=== PATIENT | male | born 1985 | race Caucasian/White ===

== ENCOUNTER 2018-12-24 08:57 | Inpatient (IN) | payer OTHER ==
[2018-12-24 09:23] VITALS: BMI 22.8
--- NOTE | 2018-12-24 09:36 | HP ---
CIWA Score - Admission Criteria [facility]ASAS Guidelines: Admission for Medically Managed Detox: Requires at least one of the followin. CIWA greater than 12 2. Seizures within the past 24 hours 3. Delirium tremens within the past 24 hours 4. Hallucinations within the past 24 hours 5. Acute intervention needed for co occurring medical disorder 6. Acute intervention needed for co occurring psychiatric disorder 7. Severe withdrawal that cannot be handled at a lower level of care (continued vomiting, continued diarrhea, abnormal vital signs) requiring intravenous medication and/or fluids 8. Admission ROS BHS - HPI Chief Complaint: i am here for rehab from cocaine and heroin Allergies/Adverse Reactions: Allergies Allergy/AdvReac Type Severity Reaction Status Date / Time No Known Allergies Allergy Verified 12/24/18 10:24 History of Present Illness: this 33 years old male with heroin and cocaine dependence,seeking rehab, completed detox at [facility] for 12/02/18 to 11/29/18 nicotine dependence 1o cigarette/day longest sobriety 1 year plan for outpatient program after rehab Exam Limitations: No Limitations - Ebola screening Have you traveled outside of the country in the last 21 days: No Have you had contact with anyone from an Ebola affected area: No Have you been sick,other than usual withdrawal symptoms: No Do you have a fever: No - Review of Systems Constitutional: No Symptoms Reported EENT: reports: No Symptoms Reported Respiratory: reports: No Symptoms reported Cardiac: reports: No Symptoms Reported GI: reports: No Symptoms Reported : reports: Flank Pain Musculoskeletal: reports: No Symptoms Reported Integumentary: reports: No Symptoms Reported Neuro: reports: Headache Endocrine: reports: No Symptoms Reported Hematology: reports: No Symptoms Reported Psychiatric: reports: No Sypmtoms Reported Other Systems: Reviewed and Negative Patient History - Patient Medical History Hx Anemia: No Hx Asthma: No Hx Chronic Obstructive Pulmonary Disease (COPD): No Hx Cancer: No Hx Cardiac Disorders: No Hx Congestive Heart Failure: No Hx Hypertension: No Hx Hypercholesterolemia: No Hx Pacemaker: No HX Cerebrovascular Accident: No Hx Seizures: No Hx Dementia: No Hx Diabetes: No Hx Gastrointestinal Disorders: No Hx Liver Disease: No Hx Genitourinary Disorders: No Hx Sexually Transmitted Disorders: No Hx Renal Disease (ESRD): No Hx Thyroid Disease: No Hx Human Immunodeficiency Virus (HIV): No (last 12/04 negative) Hx Hepatitis C: No Hx Depression: No Hx Suicide Attempt: No Hx Bipolar Disorder: No Hx Schizophrenia: No Other Medical History: no suicidal,no hommicidal - Patient Surgical History Past Surgical History: Yes Other Surgical History: tosillectomy at age of 16 - PPD History Previous Implant?: Yes Documented Results: Negative w/o proof Implanted On Prior R Admission?: No PPD to be Administered?: Yes - Smoking Cessation Smoking history: Current every day smoker Have you smoked in the past 12 months: Yes Aproximately how many cigarettes per day: 10 Cigars Per Day: 0 Hx Chewing Tobacco Use: No Initiated information on smoking cessation: Yes 'Breaking Loose' booklet given: 12/24/18 - Substance & Tx. History Hx Alcohol Use: No Hx Substance Use: Yes Substance Use Type: Alcohol, Cocaine, Heroin Hx Substance Use Treatment: Yes ([facility] 12/02/18 to 12/09/18) - Substances Abused Heroin Route: Injection Frequency: 1-2 times per week Amount used: 2 bags Age of first use: 28 Date of Last Use: 12/21/18 Cocaine Route: Injection Frequency: Daily Amount used: 80$ Age of first use: 23 Date of Last Use: 12/22/18 Family Disease History - Family Disease History Family History: Denies Admission Physical Exam BHS - Vital Signs Vital Signs: Vital Signs - 24 hr 12/24/18 09:21 Temperature 98.5 F Pulse Rate 72 Respiratory 18 Rate Blood Pressure 134/84 - Physical General Appearance: Yes: Within Normal Limits HEENTM: Yes: Normal ENT Inspection, NIKA, Pharynx Normal Respiratory: Yes: Lungs Clear, Normal Breath Sounds, No Respiratory Distress Neck: Yes: Within Normal Limits, Supple, Trachea in good position Breast: Yes: Within Normal Limits Cardiology: Yes: Within Normal Limits, Regular Rhythm, Regular Rate, S1, S2 Abdominal: Yes: Within Normal Limits, Normal Bowel Sounds, Non Tender, Flat, Soft Genitourinary: Yes: Within Normal Limits Back: Yes: Within Normal Limits Musculoskeletal: Yes: Back pain, Muscle Pain Extremities: Yes: Normal Range of Motion, Tremors 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, Fully Oriented, Alert, Motor Strength 5/5 Integumentary: Yes: Within Normal Limits Lymphatic: Yes: Within Normal Limits - Diagnostic (1) Heroin abuse Current Visit: Yes Status: Acute (2) Cocaine dependence Current Visit: Yes Status: Acute (3) Nicotine dependence Current Visit: Yes Status: Acute Cleared for Admission [facility] - Detox or Rehab Claeared for Rehab Admission: Yes [facility] Breath Alcohol Content Breath Alcohol Content: 0 Urine Drug Screen - Results Drug Screen Negative: No Urine Drug Screen Results: SHARDA-Cocaine, OPI-Opiates Inpatient Rehab Admission - Rehab Decision to Admit Inpatient rehab admission?: Yes - Initial Determination Are CD services needed?: Yes Free of communicable disease: Yes Not in need of hospitalization: Yes - Rehab Admission Criteria Previous failed treatment: Yes Poor recovery environment: Yes Comorbidities: Yes Lacks judgement: No Patient is meeting Inpatient Rehab admission criteria:: Yes
[2018-12-24] MEDS ORDERED: MAGNESIUM CITRATE 300 ML BOTTLE PO PRN (10:19)
[2018-12-24] MEDS ORDERED: MAG HYDROX/AL HYDROX/SIMETH 30 ML UNIT-DOSE CUP PO PRN (10:19)
[2018-12-24] MEDS ORDERED: LOPERAMIDE HCL 2 MG CAPSULE PO PRN (10:19)
[2018-12-24] MEDS ORDERED: MAGNESIUM HYDROX 2400MG/30ML ORAL SUSPENSION 30 ML CUP PO PRN (10:19)
[2018-12-24] MEDS ORDERED: ACETAMINOPHEN 325 MG TABLET (FP) PO PRN (10:19)
[2018-12-24] MEDS ORDERED: guaiFENesin 200 MG/10 ML 10 ML UNIT-DOSE CUPS PO PRN (10:19)
[2018-12-24] MEDS ORDERED: MENTHOL/PHENOL 1 EACH UD MM PRN (10:19)
[2018-12-24] MEDS ORDERED: P-EPHED 60MG/TRIPROLIDI 2.5MG TABLET PO PRN (10:19)
[2018-12-24] MEDS ORDERED: TUBERCULIN PPD 5 TU/0.1ML VIAL ID ONE ×2 (14:10→14:37)
[2018-12-24] MEDS: IBUPROFEN 400 MG TABLET (FP) PO PRN (14:11)
[2018-12-24 16:20] LABS: ALBUMIN 4.3 g/dl (3.4-5.0); ALK PHOS 108 U/L (45-117); ANION GAP 6 MMOL/L (8-16); BILIRUBIN,TOTAL 0.6 mg/dL (0.2-1); BLOOD UREA NITROGEN 10 mg/dL (7-18); CALCIUM 9.3 mg/dL (8.5-10.1); CHLORIDE 106 mmol/L (98-107); CO2 27 mmol/L (21-32); CREATININE 1.1 mg/dL (0.55-1.3); GLUCOSE,RANDOM 97 mg/dL (74-106); POTASSIUM 4.3 mmol/L (3.5-5.1); SGOT/AST 9 U/L (15-37); SGPT/ALT 22 U/L (13-61); SODIUM 140 mmol/L (136-145); TOT PROT 7.9 g/dl (6.4-8.2)
[2018-12-24 19:35] LABS: HEMATOCRIT 42.4 % (35.4-49); HEMOGLOBIN 14.2 GM/dL (11.7-16.9); MCH 30.6 pg (25.7-33.7); MCHC 33.5 g/dl (32.0-35.9); MEAN CELL VOLUME 91.3 fl (80-96); PLATELET COUNT 234 K/MM3 (134-434); RBC 4.64 M/mm3 (4.00-5.60); RDW 14.2 % (11.9-15.9); WHITE BLOOD COUNT 6.4 K/mm3 (4.0-10.0)
[2018-12-24] MEDS: THIAMINE HCL 100 MG TABLET (FP) PO SCH (21:26)
[2018-12-25] MEDS: PRENATAL VITAMINS W/ FOLIC ACID TABLET (FP) PO SCH (10:55)
--- NOTE | 2018-12-25 13:37 | EKG ---
Test Reason : Blood Pressure : / mmHG Vent. Rate : 064 BPM Atrial Rate : 064 BPM P-R Int : 140 ms QRS Dur : 084 ms QT Int : 422 ms P-R-T Axes : 061 072 058 degrees QTc Int : 435 ms NORMAL SINUS RHYTHM NORMAL ECG NO PREVIOUS ECGS AVAILABLE Confirmed by MD YIN, LAURA ([id number]) on 12/25/2018 1:37:35 PM Referred By: Confirmed By:LAURA ESQUEDA MD
[2018-12-25 17:33] LABS: URINE APPEARANCE CLOUDY; URINE BILIRUBIN NEGATIVE (<2.0 mg/dL); URINE COLOR AMBER; URINE GLUCOSE (UA) NEGATIVE (NEGATIVE); URINE KETONE NEGATIVE (NEGATIVE); URINE LEUK ESTERASE NEGATIVE (NEGATIVE); URINE NITRITE NEGATIVE (NEGATIVE); URINE PROTEIN NEGATIVE (NEGATIVE); URINE UROBILINOGEN NEGATIVE mg/dL (0.2-1.0)
[2018-12-25] MEDS: THIAMINE HCL 100 MG TABLET (FP) PO SCH (21:42)
[2018-12-25] MEDS: MELATONIN 5 MG TABLETS PO PRN (21:43)
[2018-12-26] MEDS: IBUPROFEN 400 MG TABLET (FP) PO PRN (09:39)
[2018-12-26] MEDS: hydrOXYzine PAMOATE 50 MG CAPSULE (FP) PO PRN (09:40)
[2018-12-26] MEDS: PRENATAL VITAMINS W/ FOLIC ACID TABLET (FP) PO SCH (09:42)
--- NOTE | 2018-12-26 11:34 | PN ---
[facility] Progress Note Note: PT C/O WITHDRAWAL SX OF SWEATS,CHILLS,FATIGUE, IRRITABILITY,RESTLESSNESS, BODY/ BACK ACHES. PT REPORTS COMPLETED DETOX AT [facility], [facility] 2 WEEKS AGO BEFORE COMING INTO REHAB 2 DAYS AGO. PT WAS SEEN IN BED, SLEEPY BUT EASILY AROUSED. ALERT O X 3. Vital Signs 12/26/18 06:44 Temperature 98.7 F Pulse Rate 53 L Respiratory 16 Rate Blood Pressure 136/75 Laboratory Tests 12/24/18 12/24/18 12/24/18 10:15 10:15 10:15 WBC 6.4 RBC 4.64 Hgb 14.2 Hct 42.4 MCV 91.3 MCH 30.6 MCHC 33.5 RDW 14.2 Plt Count 234 MPV 10.0 Sodium 140 Potassium 4.3 Chloride 106 Carbon Dioxide 27 Anion Gap 6 L BUN 10 Creatinine 1.1 Creat Clearance w eGFR > 60 Random Glucose 97 Calcium 9.3 Total Bilirubin 0.6 AST 9 L ALT 22 Alkaline Phosphatase 108 Total Protein 7.9 Albumin 4.3 Urine Color Urine Appearance Urine pH Ur Specific [place] Urine Protein Urine Glucose (UA) Urine Ketones Urine Blood Urine Nitrite Urine Bilirubin Urine Urobilinogen Ur Leukocyte Esterase RPR Titer Nonreactive 12/25/18 15:45 WBC RBC Hgb Hct MCV MCH MCHC RDW Plt Count MPV Sodium Potassium Chloride Carbon Dioxide Anion Gap BUN Creatinine Creat Clearance w eGFR Random Glucose Calcium Total Bilirubin AST ALT Alkaline Phosphatase Total Protein Albumin Urine Color [place] Urine Appearance Cloudy Urine pH 7.0 Ur Specific [place] 1.021 Urine Protein Negative Urine Glucose (UA) Negative Urine Ketones Negative Urine Blood Negative Urine Nitrite Negative Urine Bilirubin Negative Urine Urobilinogen Negative Ur Leukocyte Esterase Negative RPR Titer RESIDUAL W/S PLAN:CLONIDINE 0.1 MG PO BID DIRECTED FLEXERIL 10 MG PO BID MOTRIN PRN INCREASE PO FLUIDS.
[2018-12-26] MEDS: cloNIDine HCL 0.1 MG TABLET PO SCH (21:24)
[2018-12-26] MEDS: CYCLOBENZAPRINE HCL 10 MG TABLET (FP) PO SCH (21:24)
[2018-12-26] MEDS: THIAMINE HCL 100 MG TABLET (FP) PO SCH (21:24)
[2018-12-26] MEDS: MELATONIN 5 MG TABLETS PO PRN (21:25)
[2018-12-27] MEDS: cloNIDine HCL 0.1 MG TABLET PO SCH ×2 (10:01→21:26)
[2018-12-27] MEDS: PRENATAL VITAMINS W/ FOLIC ACID TABLET (FP) PO SCH (10:01)
[2018-12-27] MEDS: CYCLOBENZAPRINE HCL 10 MG TABLET (FP) PO SCH ×2 (10:01→21:26)
[2018-12-27] MEDS: hydrOXYzine PAMOATE 50 MG CAPSULE (FP) PO PRN (10:02)
[2018-12-27] MEDS: THIAMINE HCL 100 MG TABLET (FP) PO SCH (21:26)
[2018-12-27] MEDS: MELATONIN 5 MG TABLETS PO PRN (21:26)
[2018-12-28] MEDS: cloNIDine HCL 0.1 MG TABLET PO SCH ×2 (11:34→21:35)
[2018-12-28] MEDS: PRENATAL VITAMINS W/ FOLIC ACID TABLET (FP) PO SCH (11:35)
[2018-12-28] MEDS: CYCLOBENZAPRINE HCL 10 MG TABLET (FP) PO SCH ×2 (11:35→21:35)
[2018-12-28] MEDS: THIAMINE HCL 100 MG TABLET (FP) PO SCH (21:35)
[2018-12-28] MEDS: MELATONIN 5 MG TABLETS PO PRN (21:36)
[2018-12-28] MEDS: hydrOXYzine PAMOATE 50 MG CAPSULE (FP) PO PRN (21:36)
[2018-12-29] MEDS: CYCLOBENZAPRINE HCL 10 MG TABLET (FP) PO SCH ×2 (10:03→21:29)
[2018-12-29] MEDS: PRENATAL VITAMINS W/ FOLIC ACID TABLET (FP) PO SCH (10:03)
[2018-12-29] MEDS: cloNIDine HCL 0.1 MG TABLET PO SCH ×2 (10:03→21:29)
[2018-12-29] MEDS: THIAMINE HCL 100 MG TABLET (FP) PO SCH (21:29)
[2018-12-29] MEDS: MELATONIN 5 MG TABLETS PO PRN (21:29)
[2018-12-30] MEDS: PRENATAL VITAMINS W/ FOLIC ACID TABLET (FP) PO SCH (11:01)
[2018-12-30] MEDS: cloNIDine HCL 0.1 MG TABLET PO SCH ×2 (11:01→21:20)
[2018-12-30] MEDS: CYCLOBENZAPRINE HCL 10 MG TABLET (FP) PO SCH ×2 (11:01→21:20)
[2018-12-30] MEDS: hydrOXYzine PAMOATE 50 MG CAPSULE (FP) PO PRN (11:01)
[2018-12-30] MEDS: THIAMINE HCL 100 MG TABLET (FP) PO SCH (21:20)
[2018-12-30] MEDS: MELATONIN 5 MG TABLETS PO PRN (21:20)
[2018-12-31] MEDS: cloNIDine HCL 0.1 MG TABLET PO SCH ×2 (10:17→21:17)
[2018-12-31] MEDS: CYCLOBENZAPRINE HCL 10 MG TABLET (FP) PO SCH ×2 (10:17→21:18)
[2018-12-31] MEDS: PRENATAL VITAMINS W/ FOLIC ACID TABLET (FP) PO SCH (10:17)
[2018-12-31] MEDS: MELATONIN 5 MG TABLETS PO PRN (21:18)
[2018-12-31] MEDS: THIAMINE HCL 100 MG TABLET (FP) PO SCH (21:18)
[2019-01-01] MEDS ORDERED: NICOTINE POLACRILEX 2 MG GUM BUC PRN (09:50)
[2019-01-01] MEDS: hydrOXYzine PAMOATE 50 MG CAPSULE (FP) PO PRN (10:30)
[2019-01-01] MEDS: CYCLOBENZAPRINE HCL 10 MG TABLET (FP) PO SCH ×2 (10:30→21:30)
[2019-01-01] MEDS: PRENATAL VITAMINS W/ FOLIC ACID TABLET (FP) PO SCH (10:30)
[2019-01-01] MEDS: cloNIDine HCL 0.1 MG TABLET PO SCH ×2 (10:30→21:31)
[2019-01-01] MEDS: MELATONIN 5 MG TABLETS PO PRN (21:30)
[2019-01-01] MEDS: THIAMINE HCL 100 MG TABLET (FP) PO SCH (21:30)
[2019-01-02] MEDS: cloNIDine HCL 0.1 MG TABLET PO SCH ×2 (10:11→21:22)
[2019-01-02] MEDS: PRENATAL VITAMINS W/ FOLIC ACID TABLET (FP) PO SCH (10:11)
[2019-01-02] MEDS: hydrOXYzine PAMOATE 50 MG CAPSULE (FP) PO PRN (10:11)
[2019-01-02] MEDS: CYCLOBENZAPRINE HCL 10 MG TABLET (FP) PO SCH ×2 (10:11→21:22)
[2019-01-02] MEDS: THIAMINE HCL 100 MG TABLET (FP) PO SCH (21:22)
[2019-01-02] MEDS: MELATONIN 5 MG TABLETS PO PRN (21:22)
[2019-01-03] MEDS: hydrOXYzine PAMOATE 50 MG CAPSULE (FP) PO PRN (10:09)
[2019-01-03] MEDS: PRENATAL VITAMINS W/ FOLIC ACID TABLET (FP) PO SCH (10:09)
[2019-01-03] MEDS: CYCLOBENZAPRINE HCL 10 MG TABLET (FP) PO SCH ×2 (10:09→21:23)
[2019-01-03] MEDS: cloNIDine HCL 0.1 MG TABLET PO SCH ×2 (10:09→21:23)
[2019-01-03] MEDS: THIAMINE HCL 100 MG TABLET (FP) PO SCH (21:23)
[2019-01-03] MEDS: MELATONIN 5 MG TABLETS PO PRN (21:23)
[2019-01-04] MEDS: PRENATAL VITAMINS W/ FOLIC ACID TABLET (FP) PO SCH (09:59)
[2019-01-04] MEDS: cloNIDine HCL 0.1 MG TABLET PO SCH (11:00)
[2019-01-04] MEDS ORDERED: cloNIDine HCL 0.1 MG TABLET PO PRN (15:20)
--- NOTE | 2019-01-04 15:21 | PN ---
S Progress Note Note: PT IS TOLERATING REHAB WELL. PT REQUESTED CLONIDINE AND FLEXERIL BE CHANGED TO PRN ONLY. ALERT O X 3.NAD. Vital Signs (72 hours) 01/01/19 01/02/19 01/02/19 22:16 00:30 03:30 Temperature Pulse Rate 81 Respiratory 18 18 Rate Blood Pressure 137/66 01/02/19 01/02/19 01/02/19 06:32 10:00 20:57 Temperature 97.9 F Pulse Rate 77 93 H 81 Respiratory 18 Rate Blood Pressure 115/72 130/75 126/72 01/03/19 01/03/19 01/03/19 00:30 03:30 07:07 Temperature 97.5 F L Pulse Rate 77 Respiratory 18 18 18 Rate Blood Pressure 115/73 01/03/19 01/03/19 01/04/19 10:00 22:00 00:30 Temperature Pulse Rate 89 93 H Respiratory 18 Rate Blood Pressure 128/88 125/59 L 01/04/19 01/04/19 01/04/19 03:30 07:03 10:00 Temperature 97.8 F Pulse Rate 73 91 H Respiratory 18 18 Rate Blood Pressure 128/77 124/99 Laboratory Tests 12/24/18 12/24/18 12/24/18 10:15 10:15 10:15 WBC 6.4 RBC 4.64 Hgb 14.2 Hct 42.4 MCV 91.3 MCH 30.6 MCHC 33.5 RDW 14.2 Plt Count 234 MPV 10.0 Sodium 140 Potassium 4.3 Chloride 106 Carbon Dioxide 27 Anion Gap 6 L BUN 10 Creatinine 1.1 Creat Clearance w eGFR > 60 Random Glucose 97 Calcium 9.3 Total Bilirubin 0.6 AST 9 L ALT 22 Alkaline Phosphatase 108 Total Protein 7.9 Albumin 4.3 Urine Color Urine Appearance Urine pH Ur Specific [place] Urine Protein Urine Glucose (UA) Urine Ketones Urine Blood Urine Nitrite Urine Bilirubin Urine Urobilinogen Ur Leukocyte Esterase RPR Titer Nonreactive 12/25/18 15:45 WBC RBC Hgb Hct MCV MCH MCHC RDW Plt Count MPV Sodium Potassium Chloride Carbon Dioxide Anion Gap BUN Creatinine Creat Clearance w eGFR Random Glucose Calcium Total Bilirubin AST ALT Alkaline Phosphatase Total Protein Albumin Urine Color [place] Urine Appearance Cloudy Urine pH 7.0 Ur Specific [place] 1.021 Urine Protein Negative Urine Glucose (UA) Negative Urine Ketones Negative Urine Blood Negative Urine Nitrite Negative Urine Bilirubin Negative Urine Urobilinogen Negative Ur Leukocyte Esterase Negative RPR Titer PLAN:CHANGE CLONIDINE AND FLEXERIL TO PRN.
[2019-01-04] MEDS: MELATONIN 5 MG TABLETS PO PRN (21:24)
[2019-01-04] MEDS: THIAMINE HCL 100 MG TABLET (FP) PO SCH (21:24)
[2019-01-04] MEDS: CYCLOBENZAPRINE HCL 10 MG TABLET (FP) PO PRN (21:24)
[2019-01-05 07:16] VITALS: TEMP 97.7
[2019-01-05] MEDS: PRENATAL VITAMINS W/ FOLIC ACID TABLET (FP) PO SCH (10:14)
[2019-01-05] MEDS: THIAMINE HCL 100 MG TABLET (FP) PO SCH (21:23)
[2019-01-05] MEDS: MELATONIN 5 MG TABLETS PO PRN (21:24)
[2019-01-05] MEDS: CYCLOBENZAPRINE HCL 10 MG TABLET (FP) PO PRN (21:24)
[2019-01-05 22:30] VITALS: PULSE 108
[2019-01-06] MEDS: PRENATAL VITAMINS W/ FOLIC ACID TABLET (FP) PO SCH (09:56)
[2019-01-06] MEDS: CYCLOBENZAPRINE HCL 10 MG TABLET (FP) PO PRN (21:25)
[2019-01-06] MEDS: MELATONIN 5 MG TABLETS PO PRN (21:25)
[2019-01-06] MEDS: THIAMINE HCL 100 MG TABLET (FP) PO SCH (21:25)
[2019-01-06 22:07] VITALS: BP 127/76
--- NOTE | 2019-01-07 10:09 | PN ---
[facility] Progress Note Note: PT COMPLETED REHAB AND DISCHARGED TODAY. PT WAS REFERRED TO [facility] OUT PT PROGRAM ON [address], [place]. 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 NO PMHx INDICATED. PT IS ALERT O X 3. DENIES S/H/I. Home Medications Medication Instructions Recorded NK [No Known Home Medication] 12/24/18 Vital Signs (72 hours) 01/05/19 01/05/19 01/05/19 03:30 07:16 09:35 Temperature 97.7 F Pulse Rate 67 83 Respiratory 18 18 18 Rate Blood Pressure 140/88 125/66 01/05/19 01/06/19 01/06/19 21:00 00:30 03:30 Temperature Pulse Rate 108 H Respiratory 18 16 16 Rate Blood Pressure 124/67 01/06/19 01/06/19 01/06/19 06:30 06:54 21:00 Temperature Pulse Rate 108 H Respiratory 16 16 18 Rate Blood Pressure 127/76 01/07/19 01/07/19 01/07/19 00:30 03:30 07:25 Temperature Pulse Rate Respiratory 18 18 18 Rate Blood Pressure Laboratory Tests 12/24/18 12/24/18 12/24/18 10:15 10:15 10:15 WBC 6.4 RBC 4.64 Hgb 14.2 Hct 42.4 MCV 91.3 MCH 30.6 MCHC 33.5 RDW 14.2 Plt Count 234 MPV 10.0 Sodium 140 Potassium 4.3 Chloride 106 Carbon Dioxide 27 Anion Gap 6 L BUN 10 Creatinine 1.1 Creat Clearance w eGFR > 60 Random Glucose 97 Calcium 9.3 Total Bilirubin 0.6 AST 9 L ALT 22 Alkaline Phosphatase 108 Total Protein 7.9 Albumin 4.3 Urine Color Urine Appearance Urine pH Ur Specific [place] Urine Protein Urine Glucose (UA) Urine Ketones Urine Blood Urine Nitrite Urine Bilirubin Urine Urobilinogen Ur Leukocyte Esterase RPR Titer Nonreactive 12/25/18 15:45 WBC RBC Hgb Hct MCV MCH MCHC RDW Plt Count MPV Sodium Potassium Chloride Carbon Dioxide Anion Gap BUN Creatinine Creat Clearance w eGFR Random Glucose Calcium Total Bilirubin AST ALT Alkaline Phosphatase Total Protein Albumin Urine Color [place] Urine Appearance Cloudy Urine pH 7.0 Ur Specific [place] 1.021 Urine Protein Negative Urine Glucose (UA) Negative Urine Ketones Negative Urine Blood Negative Urine Nitrite Negative Urine Bilirubin Negative Urine Urobilinogen Negative Ur Leukocyte Esterase Negative RPR Titer NAD MEDICALLY STABLE PLAN:D/C PT TODAY FOLLOW UP WITH CD AFTERCARE RECOMMENDED ABOVE. FOLLOW UP WITH PICKING A PCP WITHIN 1-2 WEEKS AFTER DISCHARGE. SEEK MEDICAL CARE AT ANY EMERGENCY ROOM NEAR YOU WHEN NEEDED. DISCHARGE DX: Current Active Problems Problem Status Onset Heroin dependence Chronic ~12/24/18 Heroin abuse Acute Cocaine dependence Chronic ~12/24/18 Nicotine dependence Chronic ~12/24/18
== END 2019-01-07 10:30 | disposition home or self-care (01) | DRG 772 ==
LOC: YASAS 08:57 → Y5N 12:07
PROVIDERS: ADMIT Surgery; ATTEND Surgery
PROC: HZ42ZZZ Group Counseling for Substance Abuse Treatment, Cognitive-Behavioral (ICD-10-PCS; principal; 2018-12-24)
DX: F11.20 Opioid dependence, uncomplicated (principal); F14.20 Cocaine dependence, uncomplicated; F17.210 Nicotine dependence, cigarettes, uncomplicated
CPT/HCPCS: 36415; 80053; 81003; 85027; 86593; 93005; 93010; J0735